=== PATIENT | male | born 1960 ===

== ENCOUNTER 2019-04-17 15:48 | Emergency (ER) | payer BC ==
--- NOTE | 2019-04-17 16:14 | EDM.PDOC ---
ED HPI GENERAL MEDICAL PROBLEM - General Chief Complaint: Lower Extremity Injury/Pain Stated Complaint: Ankle pain after falling on ice Time Seen by Provider: 04/17/19 16:00 Source of Information: Reports: Patient History Limitations: Reports: No Limitations - History of Present Illness INITIAL COMMENTS - FREE TEXT/NARRATIVE: This patient is a 58 year old pleasant male that presents the ER. Patient reports that he was walking out to the chickens when he slipped on ice and fell to the ice. patient reprots twsiting his left ankle possibly and sitting on it. Patient reports left ankle pain and swelling. Patient denies any other injury. Denies hitting head, loc, n, vision changes or any other pain complaints. Onset: Today Onset Date: 04/17/19 Location: Reports: Lower Extremity, Left Severity: Mild Improves with: Reports: None Worsens with: Reports: None Associated Symptoms: Denies: Confusion, Chest Pain, Headaches, Nausea/Vomiting, Seizure, Shortness of Breath, Syncope, Weakness - Related Data Allergies Allergy/AdvReac Type Severity Reaction Status Date / Time No Known Allergies Allergy Verified 04/17/19 15:52 Home Meds: Home Meds Ibuprofen [Motrin] 800 mg PO TID PRN #30 tablet 04/17/19 [Rx] Past Medical History Other Respiratory History: Dx of "Qfever " Neurological History: Reports: Other (See Below) Other Neuro History: encephalitis Hematologic History: Reports: Idiopathic Thrombocytopenia Social & Family History - Family History Family Medical History: Noncontributory - Tobacco Use Smoking Status *Q: Never Smoker Second Hand Smoke Exposure: No - Caffeine Use Caffeine Use: Reports: None - Recreational Drug Use Recreational Drug Use: No Review of Systems - Review of Systems Review Of Systems: See Below Constitutional: Reports: No Symptoms Eyes: Reports: No Symptoms Ears: Reports: No Symptoms Nose: Reports: No Symptoms Mouth/Throat: Reports: No Symptoms Respiratory: Reports: No Symptoms Cardiovascular: Reports: No Symptoms GI/Abdominal: Reports: No Symptoms Genitourinary: Reports: No Symptoms Musculoskeletal: Reports: Joint Pain (left ankle), Joint Swelling (left ankle) Skin: Reports: No Symptoms Neurological: Reports: No Symptoms Psychiatric: Reports: No Symptoms ED EXAM, GENERAL - Physical Exam Exam: See Below Exam Limited By: No Limitations General Appearance: Alert, WD/WN, No Apparent Distress Respiratory/Chest: No Respiratory Distress, Lungs Clear, Normal Breath Sounds, No Accessory Muscle Use, Chest Non-Tender Cardiovascular: Normal Peripheral Pulses, Regular Rate, Rhythm, No Edema, No Gallop, No JVD, No Murmur, No Rub Peripheral Pulses: 2+: Posterior Tibial (L), Posterior Tibial (R) Back Exam: Normal Inspection, Full Range of Motion. No: CVA Tenderness (L), CVA Tenderness (R), Decreased Range of Motion, Muscle Spasm, Paraspinal Tenderness, Vertebral Tenderness Extremities: Normal Range of Motion, Normal Capillary Refill, Other (Left ankle lateral swelling, eccyhmosis mild, pain, tenderness. Pulses +2 cap refill < 2sec , sensory/motor function intact. Neurovascular intact. Negative Gonzalez test. Stable ankle. ) Neurological: Alert, Oriented Psychiatric: Normal Affect, Normal Mood Skin Exam: Warm, Dry, Intact, No Rash, Ecchymosis (left lateral ankle) Course - Orders/Labs/Meds Orders: Active Orders 24 hr Category Date Time Status Ankle Min 3V Lt [CR] Stat Exams 04/17/19 16:00 Taken Ankle Min 3V Rt [CR] Routine Exams 04/17/19 Ordered - Radiology Interpretation Free Text/Narrative:: Left ankle: Left lateral malleolar fracture. No dislocation. - Re-Assessments/Exams Free Text/Narrative Re-Assessment/Exam: 04/17/19 17:09 Called [facility] and spoke to Podiatry Dr. Ibarra. He reports to put patient in a Cam boot and crutches. No weight bearing in the first 3 days, then weight bear as tolerated. Then f/u with PCP in 10 days for left ankle xray to ensure the fracture has not widened. May followup locally. 04/17/19 17:26 Patient has a cam boot at home. They will go home and see if this boot fits the patient, will return for larger size boot if not. Crutches given here. Departure - Departure Time of Disposition: 17:26 Disposition: Home, Self-Care 01 Condition: Good Clinical Impression: Lateral malleolar fracture Qualifiers: Encounter type: initial encounter Fracture type: closed Fracture alignment: nondisplaced Laterality: left Qualified Code(s): S82.65XA - Nondisplaced fracture of lateral malleolus of left fibula, initial encounter for closed fracture - Discharge Information *PRESCRIPTION DRUG MONITORING PROGRAM REVIEWED*: No *COPY OF PRESCRIPTION DRUG MONITORING REPORT IN PATIENT ARACELI: No Prescriptions: Ibuprofen [Motrin] 800 mg PO TID PRN #30 tablet PRN Reason: Pain Instructions: Crutch Use, Adult, [id number], Walking Boot, Adult, Ankle Fracture, [id number] Referrals: Rc Brandon PA-C [Primary Care Provider] - Forms: ED Department Discharge Additional Instructions: Followup with primary care provider in 10 days for repeat xray Return to the ER for worsening of condition or any emergent concerns Rest Ice Elevate Walker boot until pain free Crutches as needed No bearing weight for 3 days on your left leg. Then, may start to bear weight as you can tolerate the pain. Motrin 800mg 1 pill every 8 hours as needed for pain #30 no refill: Take with food: Stop if bleeding in bowels, upset stomach, acid reflux. Sepsis Event Note - Evaluation Sepsis Screening Result: No Definite Risk - Focused Exam Date Exam was Performed: 04/17/19 Time Exam was Performed: 17:25 - My Orders Last 24 Hours: My Active Orders 04/17/19 Ankle Min 3V Rt [CR] Routine 04/17/19 16:00 Ankle Min 3V Lt [CR] Stat - Assessment/Plan Last 24 Hours: My Active Orders 04/17/19 Ankle Min 3V Rt [CR] Routine 04/17/19 16:00 Ankle Min 3V Lt [CR] Stat Plan: PLEASE SEE RN NOTE FOR PFSH
== END 2019-04-17 17:33 | disposition home or self-care (01) ==
LOC: CC.ED 15:48
DX: S82.65XA Nondisplaced fracture of lateral malleolus of left fibula, initial encounter for closed fracture (principal); W00.0XXA Fall on same level due to ice and snow, initial encounter; Y93.01 Activity, walking, marching and hiking
CPT/HCPCS: 73610-LT; 99283-25